=== PATIENT | male | born 1995 | race Two or more races ===

== ENCOUNTER 2020-05-11 05:38 | Day surgery (SDC) | payer OTHER ==
--- NOTE | 2020-05-10 15:13 | Pre-Procedure Note/Attestation ---
Pre-Procedure Note/Attestation Complete Prior to Procedure Planned Procedure: bilateral Procedure Narrative: 1. Septoplasty 2. SMR inf right turbinate 3. SMR inf left turbinate Indications for Procedure Pre-Operative Diagnosis: 1. Nasal septal deviation 2. Hypertrophied right inferior turbnate 3. Hypertrophied left inferior turbinate Attestation I attest that I discussed the nature of the procedure; its benefits; risks and complications; and alternatives (and the risks and benefits of such alternatives), prior to the procedure, with the patient (or the patient's legal financial sales representative). I attest that, if there was a reasonable possibility of needing a blood transfusion, the patient (or the patient's legal financial sales representative) was given the [place] [facility] [employer] [facility] standardized written summary, pursuant to the Emanuel [place] Blood Safety Act ([place] Health and Safety Code # 1645, as amended). I attest that I re-evaluated the patient just prior to the surgery and that there has been no change in the patient's H&P dictated 05/10/2020 #[id number] Gilberto Ortiz MD May 10, 2020 15:13
--- NOTE | 2020-05-10 15:15 | Brief Operative Note ---
Immediate Post Operative Note Operative Note Chief Complaint: Nasal airway obstruction Pre-op Diagnosis: 1. Nasal septal deviation 2. Hypertrophied right inferior turbnate 3. Hypertrophied left inferior turbinate Procedure: 1. Septoplasty 2. SMR inf right turbinate 3. SMR inf left turbinate Post-op Diagnosis: same as pre-op Surgeon: Gilberto Otriz MD Glove Finisher: none Additional Surgeons: none Anesthesiologist: Ken PRATT Anesthesia: general Specimen: none Complications: none Condition: stable Fluids: D5LR Estimated Blood Loss: volume - 20 cc Packing: SinoNasal gel Tourniquet time: 0 Implant(s) used?: No Gilberto Ortiz MD May 10, 2020 15:15
--- NOTE | 2020-05-10 15:17 | Discharge Instructions ---
Discharge Instructions Discharge Instructions Follow up with: Dr. Ortiz at his office 05/17/20 noon Diet: regular Resume Normal Activity?: No Activity: light activity Pneumonia Vaccine: pt refused vaccine Influenza Vaccine (Apr to Sep): pt refused vaccine Follow Up Orders Pt has post op printed instructions which were reviewed with him at his pre op visit last week. Post op meds: Amox and Deweese. Return to Work/School on: May 25, 2020 Special Instructions ice to face x 48 hours For Congestive Heart Failure Reminder Report to your physician any weight gain of 5 pounds or more in one week. Gilberto Ortiz MD May 10, 2020 15:17
--- NOTE | 2020-05-10 17:15 | Pre-op HX & Phy Repo 2 SIG ---
DATE OF ADMISSION: 05/11/2020 INDICATION FOR SURGERY: Septal deviation, hypertrophied right and left inferior turbinates. Patient has failed nasal steroids, antihistamines. ALLERGIES: No known drug allergies. MEDICATIONS: Amoxicillin, Zyrtec, dust mite allergen extract, and Pine Apple. PAST MEDICAL HISTORY: None. SOCIAL HISTORY: Smoker. Light alcohol. Single. No children. Denies alcohol or drugs. Self-employed, DJ. PAST SURGICAL HISTORY: Biopsy lymph node neck, which was benign and a colonoscopy and endoscopy. PHYSICAL EXAMINATION: VITAL SIGNS: Patient is a 24-year-old right-handed individual, 6 feet 1 inch, 155 pounds. Blood pressure 120/80, temperature 97.4, heart rate 74, respiratory rate 13 as of 04/27/2020 when I last saw him. HEENT: Nose, septal deviation and hypertrophied right and left inferior turbinates. Ears,TMs normal Normal canals. Mouth normal. NECK: Normal. NEUROLOGIC: Cranial nerves II through XII grossly normal. ABDOMEN: Soft, nontender. Normoactive bowel sounds. EXTREMITIES: Grossly normal. HEART: Normal S1, S2. No S3 or S4. No murmur, bruit, gallop, or rub. CHEST: Clear to A and P. ASSESSMENT: He is a candidate for septoplasty and submucous resection of right and left inferior turbinates. Please note, I have discussed the risks, benefits, and alternatives and patient is stable to go forward with surgery without laboratories because he is under 45 and otherwise healthy. Giblerto Ortiz M.D. DR: SPARKLE JOB#: [id number] CC: ANGEL
[2020-05-11] VITALS (11 sets, daily range): BP systolic 97–127; BP diastolic 42–79
[~2020-05-11] VITALS: Ht 185.4 cm; Wt 77.1 kg
[2020-05-11] MEDS ORDERED: CETIRIZINE HCL10 MG PO (06:31)
[2020-05-11] MEDS ORDERED: ARNICA SL (06:31)
[2020-05-11] MEDS ORDERED: Lidocaine 1% 10mg/ml/EPI 0.01mg/ml 30ml INJ ONE (06:57)
[2020-05-11] MEDS ORDERED: Bupivacaine 0.5% Inj 30 ml vial INJ ONE (06:57)
[2020-05-11] MEDS ORDERED: Cocaine HCl 4% 4ml vial TOPIC ONE (06:57)
--- NOTE | 2020-05-11 06:57 | Anethesia Preoperative Eval ---
Anesthesia Pre-op PMH/ROS General Date of Evaluation: May 11, 2020 Anesthesiologist: Ken ASA Score: ASA 1 Mallampati Score Class I : Soft palate, uvula, fauces, pillars visible Class II: Soft palate, uvula, fauces visible Class III: Soft palate, base of uvula visible Class IV: Only hard plate visible Mallampati Classification: Class II Surgeon: Angel Diagnosis: Deviated Septum Surgical Procedure: Septoplasty turbs Anesthesia History: none Family History: no anesthesia problems Allergies: Coded Allergies: Dust (Verified Allergy, Intermediate, CONGESTION , 05/11/20) Medications: see eMAR Patient NPO?: Yes NPO Date: May 11, 2020 NPO Time: 00:00 Past Medical History Cardiovascular: Denies: HTN, CAD, CT, valve dz, arrhythmia, other Pulmonary: Denies: asthma, COPD, GREG, other Gastrointestinal/Genitourinary: Reports: GERD; Denies: CRI, ESRD, other Neurologic/Psychiatric: Denies: dementia, CVA, depression/anxiety, TIA, other Endocrine: Denies: DM, hypothyroidism, steroids, other HEENT: Denies: cataract (L), cataract (R), glaucoma, [place] (L), [place] (R), other Hematology/Immune: Denies: anemia, DVT, bleeding disorder, other Musculoskeletal/Integumentary: Denies: OA, RA, DJD, DDD, edema, other PSxH Narrative: Denies Anesthesia Pre-op Phys. Exam Physician Exam Last Vital Signs Date Time Temp Pulse Resp B/P (MAP) Pulse Ox O2 Delivery O2 Flow Rate FiO2 05/11/20 06:25 Room Air Constitutional: NAD Cardiovascular: RRR Respiratory: CTA Airway Exam Mallampati Score: Class II MO: full ROM: full Teeth: intact Anesthesia Pre-op A/P Labs see chart Risk Assessment & Plan Assessment: ASa II Plan: GA Status Change Before Surgery: No Pre-Antibiotics Drug: Ancef 1g Given Within 1 Hr of Incision: Yes Shruthi Rogers MD May 11, 2020 06:57
[2020-05-11] MEDS ORDERED: Metoclopramide 10mg/2ml Inj IVP PRN ×2 (07:00→08:30)
[2020-05-11] MEDS ORDERED: Hydromorphone 0.5mg/0.5ml inj IVP PRN (07:00)
[2020-05-11] MEDS ORDERED: Labetalol 5mg/ml 20ml vial IV PRN (07:00)
[2020-05-11] MEDS ORDERED: Ketorolac 30mg Inj IV PRN (07:00)
[2020-05-11] MEDS ORDERED: LR 1000ml 1,000 ML IVLG SCH (07:00)
[2020-05-11] MEDS ORDERED: fentaNYL 100 mcg/2 mL IV PRN (07:00)
[2020-05-11] MEDS ORDERED: Midazolam 2mg/2ml Inj IVP PRN (07:00)
[2020-05-11] MEDS ORDERED: LORazepam Inj 2mg/ml 1ml IV PRN (07:00)
[2020-05-11] MEDS ORDERED: DiphenhydrAMINE 50mg/ml Inj IVP PRN (07:00)
[2020-05-11] MEDS ORDERED: Lidocaine 1% MPF 10mg/ml 5ml ONE (07:02)
[2020-05-11] MEDS ORDERED: ceFAZolin sod 1 GM in D5W 55 ML IV ONE (07:15)
[2020-05-11] MEDS ORDERED: Metoclopramide 10mg/2ml Inj ONE (07:27)
[2020-05-11] MEDS ORDERED: Sterile Water Irrig 1000ml IRRIG ONE (07:30)
[2020-05-11] MEDS ORDERED: LR 1000ml ONE (07:30)
[2020-05-11] MEDS ORDERED: NS Irrig 1000ml IRRIG ONE (07:50)
--- NOTE | 2020-05-11 08:25 | Immediate Post-Op Evaluation ---
Immediate Post-Op Evalulation Immediate Post-Op Evalulation Procedure: Septoplasty TURBS Date of Evaluation: May 11, 2020 Time of Evaluation: 08:28 IV Fluids: 500 Blood Products: 0 Estimated Blood Loss: 20 Urinary Output: 0 Blood Pressure Systolic: 98 Blood Pressure Diastolic: 46 Pulse Rate: 71 Respiratory Rate: 16 O2 Sat by Pulse Oximetry: 100 Temperature (Fahrenheit): 98.2 Pain Score (1-10): 0 Nausea: No Vomiting: No Complications 0 Patient Status: awake, reacts, patent, none Hydration Status: adequate Drug: Ancef 1g Given Within 1 Hr of Incision: Yes Shruthi Rogers MD May 11, 2020 08:25
--- NOTE | 2020-05-11 08:26 | 48 Hour Post Anesthesia Eval ---
Post Anesthesia Evaluation Procedure: Septoplasty TURBS Date of Evaluation: May 11, 2020 Airway: patent Nausea: No Vomiting: No Pain Intensity: 0 Hydration Status: adequate Cardiopulmonary Status: at baseline Mental Status/LOC: patient returned to baseline Post-Anesthesia Complications: 0 Follow-up care needed: ready to discharge Shruthi Rogers MD May 11, 2020 08:26
[2020-05-11] MEDS ORDERED: HYDROmorphone 1mg/ml Carpuject SUBQ PRN (08:30)
[2020-05-11] MEDS ORDERED: HYDROcodone/Acetamin 5/325 tab ORAL PRN (08:30)
--- NOTE | 2020-05-11 09:30 | Operative Note - Dictated ---
DATE OF OPERATION: 05/11/2020 SURGEON: Gilberto Ortiz MD. ANESTHESIA: LMA general anesthesia as well as 15 mL of 1% lidocaine to 1:100,000 epinephrine and Marcaine 0.5% with 1:200,000 epinephrine. Finally, 4 mL of 4% topical cocaine on four nasal pledgets, two on either nostril accounted for at the end of the case. INDICATION FOR SURGERY: Nasal airway obstruction, which has failed to respond to nasal steroids and antihistamines. He has a significant nasal septal deviation and hypertrophied right and left inferior turbinates. PREOPERATIVE DIAGNOSES: Nasal airway obstruction, which has failed to respond to nasal steroids and antihistamines. He has a significant nasal septal deviation and hypertrophied right and left inferior turbinates. POSTOPERATIVE DIAGNOSES: Nasal airway obstruction, which has failed to respond to nasal steroids and antihistamines. He has a significant nasal septal deviation and hypertrophied right and left inferior turbinates. FINDINGS: Nasal airway obstruction, which has failed to respond to nasal steroids and antihistamines. He has a significant nasal septal deviation and hypertrophied right and left inferior turbinates. PROCEDURES: 1. Septoplasty. 2. Submucous resection of right inferior turbinate. 3. Submucous resection of left inferior turbinate. TECHNIQUE: The patient was prepped and draped in usual manner via LMA general anesthesia. He was then injected with the aforementioned lidocaine, Marcaine, and epinephrine mixture. Four nasal pledgets were then placed. This was all done after a time-out was performed. We all agreed as the equipment and procedure to be done. Incision made in the left inferior turbinate with a 15 blade. Radiofrequency wand covered with saline gel, setting of 6, passed twice for 10 seconds each time and then removed. I then outfractured the inferior turbinate with a butter knife. I turned my attention to the contralateral inferior turbinate. Incision made with a 15 blade. Radiofrequency wand coated with saline gel, setting of 6 was passed x2 for 10 seconds. It was then removed and the inferior turbinate was crushed and outfractured with a Boies elevator also with a butter knife. I then proceeded to make a [place] incision in the septum elevating subperiosteally and subperichondrial with a dental elevator. I then removed the lower 5 mm of the septum which were deviated in the vomer with a small osteotome. I then sewed this back together with a 4-0 plain suture. One syringe of sinonasal gel was placed. This was divided between the two nostrils. ESTIMATED BLOOD LOSS: 20 mL. COMPLICATIONS: None. DRAINS: None. The patient was stable and extubated in the operating room prior to transfer to the recovery room. Gilberto Ortiz M.D. DR: SHELLEY JOB#: [id number] CC: ANGEL
== END 2020-05-11 11:15 | disposition home or self-care (01) ==
LOC: SUR 05:38
DX: J34.2 Deviated nasal septum (principal); J34.89 Other specified disorders of nose and nasal sinuses; J34.3 Hypertrophy of nasal turbinates; F17.200 Nicotine dependence, unspecified, uncomplicated; Z79.899 Other long term (current) drug therapy; K21.9 Gastro-esophageal reflux disease without esophagitis
CPT/HCPCS: 30140; 30520; 94003; C9046; J0690; J1100; J2250; J2405; J2704; J2765; J3010; J3490; J7120; U0002; 94150